=== PATIENT | female | born 1990 | race Caucasian/White ===

== ENCOUNTER 2024-02-01 21:43 | Inpatient (IN) | payer OTHER, SELFPAY ==
[2024-02-01 21:48] VITALS: BP 140/81; BMI 29.5
[2024-02-01] MEDS: LR 1000 IV (21:50)
[2024-02-01 22:05] LABS: % Basophils 0.2 % (0-2); % Eosinophils 1.3 % (0-6); % Immature Granulocytes 0.9 % (0-0.5); % Lymphocytes 19.6 % (20.5-51.1); % Monocytes 9.5 % (1.7-9.3); % Neutrophils 68.5 % (42.2-75.2); Absolute Eosinophils 0.2 10^3/uL (0-0.7); Absolute Immature Granulocytes 0.1 10^3/uL (0-0.05); Absolute Lymphocytes 2.5 10^3/uL (1.2-3.4); Absolute Monocytes 1.2 10^3/uL (0.1-0.6); Absolute Neutrophils 8.8 10^3/uL (1.4-6.5); Hematocrit 38.5 % (37.0-47.0); Hemoglobin 14.1 g/dL (12.0-16.0); Mean Corp Hgb Conc. 36.6 g/dL (33.0-37.0); Mean Corpuscular Hgb 30.1 pg (27.0-31.0); Mean Corpuscular Volume 82.1 fL (81.0-99.0); Mean Platelet Volume 11.5 fL (7.4-10.4); Nucleated Red Blood Cells % 0 %; Platelet Count 174 10^3/uL (130-400); Red Blood Cell Count 4.69 10^6/uL (4.20-5.40); White Blood Cell Count 12.9 10^3/uL (4.8-10.8)
[2024-02-01] MEDS: SUBLIMAZE 100 MCG EPIDURAL (22:18)
[2024-02-01] MEDS: FENTANYL/BUPIVACAINE 100 EPIDURAL (22:19)
[2024-02-02] MEDS: PITOCIN 30 UNITS/NSS 500 ML IV (01:04)
[2024-02-02] MEDS: CYTOTEC 800 MCG RECTAL (01:58)
[2024-02-02] MEDS: SENOKOT-S 1 TABLET PO (07:49)
[2024-02-02] MEDS: PRENATAL PLUS 1 TABLET PO (07:49)
[2024-02-02] MEDS: LEXAPRO 20 MG PO (07:50)
[2024-02-03] MEDS: TYLENOL 650 MG PO (04:50)
[2024-02-03 04:56] LABS: Hematocrit 38.3 % (37.0-47.0); Hemoglobin 13.1 g/dL (12.0-16.0)
[2024-02-03] MEDS: LEXAPRO 20 MG PO (08:08)
[2024-02-03] MEDS: PRENATAL PLUS 1 TABLET PO (08:08)
[2024-02-05 11:55] LABS: Syphilis/T. pallidum Ab Reflex Negative (Negative)
== END 2024-02-03 12:51 | disposition home or self-care (01) | DRG 807 ==
LOC: LDRP 21:43
PROVIDERS: ADMITTING PHYSICIAN Obstetrics & Gynecology; FAMILY PHYSICIAN Family Medicine
PROC: 10E0XZZ Delivery of Products of Conception, External Approach (ICD-10-PCS; 2024-02-02)
DX: O48.0 Post-term pregnancy (principal); Z37.0 Single live birth; Z3A.40 40 weeks gestation of pregnancy; O62.2 Other uterine inertia; O99.344 Other mental disorders complicating childbirth; F41.9 Anxiety disorder, unspecified; O77.0 Labor and delivery complicated by meconium in amniotic fluid
CPT/HCPCS: 88307; 85014; 85018; 85025; 86780; 86850; 86900; 86901

== ENCOUNTER → 2025-02-24 13:02 | Outpatient (REF) | payer BC, SELFPAY | LOC: RAD 13:02 | PROVIDERS: ATTENDING PHYSICIAN Nurse Practitioner Family | DX: M41.9 Scoliosis, unspecified (principal) | CPT/HCPCS: 72081 ==